=== PATIENT | male | born 1970 | race Caucasian/White ===

== ENCOUNTER 2023-02-15 08:32 | Inpatient (IN) | payer BC ==
[2023-02-15] MEDS ORDERED: Cefepime 2 GM VIAL ONE (09:34)
[2023-02-15] MEDS ORDERED: Vancomycin 1 GM VIAL ONE (09:34)
[2023-02-15 09:40] LABS: #Neutrophils 9.8 10x3/uL (1.5-8.4); %Basophils 0.2 % (0.0-2.0); %Eosinophils 0.3 % (0.0-6.0); %Lymphocytes 6.8 % (18.0-47.0); %Monocytes 8.2 % (0.0-10.0); %Neutrophils 84.2 % (40.0-75.0); Mean Corpuscular HGB CONC 34.1 g/dL (32.0-36.0); Mean Corpuscular Hemoglobin 30.7 pg (27.0-33.0); Mean Platelet Volume 10.4 fl (7.4-10.4); Platelet Count 183 10x3/uL (150-450); RBC Distribution Width 12.9 % (11.5-14.5); Red Blood Cell (RBC) Count 5.21 10x6/uL (4.32-5.72); White Blood Cell (WBC) Count 11.6 10x3/uL (3.5-10.5)
[2023-02-15 09:54] LABS: ALT (SGPT) 27 U/L (8-55); AST (SGOT) 25 U/L (5-34); Albumin 4.6 g/dL (3.5-5.0); Alkaline Phosphatase 53 U/L (40-110); Anion Gap 15 mmol/L (10-20); BUN (Urea Nitrogen) 18 mg/dL (8.4-25.7); Bilirubin, Total 0.8 mg/dL (0.2-1.2); CK (CPK) 248 U/L (30-200); Calc. Creatinine Clearance 0 mL/min (70-130); Calcium 9.3 mg/dL (7.8-10.44); Carbon Dioxide 21 mmol/L (22-29); Chloride 105 mmol/L (98-107); Estimated GFR 73; Globulin 2.5 g/dL (2.4-3.5); Glucose 111 mg/dL (70-105); Lipase 50 U/L (8-78); Potassium 4.5 mmol/L (3.5-5.1); Protein, Total 7.1 g/dL (6.0-8.3); Sodium 136 mmol/L (136-145)
[2023-02-15 10:21] LABS: Bilirubin Neg (Negative); Blood, Urine 25 (Negative); Clarity Clear (Clear); Glucose, Urine (Dipstick) Normal (Negative); Ketone, Urine Negative (Negative); Leukocyte Negative (Negative); Nitrite Negative (Negative); Protein, Urine (Dipstick) 15 mg/dl (Neg-Trace); Urobilinogen Normal mg/dL (Less than 2)
[2023-02-15 10:32] LABS: Bacteria/HPF None Seen HPF (None Seen); CAUTI Indications for Culture Immunosuppressed; RBC/HPF 0-3 HPF (0-3); Squamous Epithelial None Seen HPF (0-3); WBC/HPF None Seen HPF (0-3)
[2023-02-15 10:33] LABS: Urine Culture Reflex Yes Yes
[2023-02-15] MEDS ORDERED: Iopamidol 370 76% 100 ML VIAL ONE (10:58)
[2023-02-15] MEDS ORDERED: HYDROcodone/Acetaminophen 5/325 mg Tablet PO PRN (12:52)
[2023-02-15] MEDS ORDERED: Acetaminophen 325 MG TAB PO PRN (12:52)
[2023-02-15] MEDS ORDERED: Ondansetron ODT 4 MG TAB PO PRN (12:52)
[2023-02-15] MEDS ORDERED: CEFAZOLIN 1 GM VIAL ONE (13:34)
[2023-02-15 18:25] VITALS: BMI 35.0
[2023-02-15] MEDS: Sodium Chloride 0.9% 1,000 ML IV SCH (19:40)
[2023-02-15] MEDS ORDERED: Atorvastatin Calcium 10 MG TAB PO SCH (21:00)
[2023-02-15] MEDS: Pregabalin 50 MG CAP PO SCH (21:30)
[2023-02-15] MEDS: CEFAZOLIN 1 GM in Sodium Chloride 0.9% 100 ML IVPB SCH (21:31)
[2023-02-16 05:03] LABS: #Eosinphils 0.1 10x3/uL (0.0-0.5); #Monocytes 0.8 10x3/uL (0.0-1.1); #Neutrophils 5.2 10x3/uL (1.5-8.4); %Basophils 0.3 % (0.0-2.0); %Eosinophils 0.7 % (0.0-6.0); %Monocytes 11.3 % (0.0-10.0); %Neutrophils 75.4 % (40.0-75.0); Hemoglobin 14.7 g/dL (13.5-17.5); Mean Corpuscular HGB CONC 33.1 g/dL (32.0-36.0); Mean Corpuscular Hemoglobin 30.4 pg (27.0-33.0); Mean Corpuscular Volume 91.9 fl (81.2-95.1); Mean Platelet Volume 10.5 fl (7.4-10.4); Platelet Count 170 10x3/uL (150-450); RBC Distribution Width 13.2 % (11.5-14.5); Red Blood Cell (RBC) Count 4.83 10x6/uL (4.32-5.72); White Blood Cell (WBC) Count 6.8 10x3/uL (3.5-10.5)
[2023-02-16 05:19] LABS: Anion Gap 13 mmol/L (10-20); BUN (Urea Nitrogen) 13 mg/dL (8.4-25.7); Calc. Creatinine Clearance 128 mL/min (70-130); Calcium 8.6 mg/dL (7.8-10.44); Carbon Dioxide 24 mmol/L (22-29); Chloride 107 mmol/L (98-107); Estimated GFR 82; Glucose 98 mg/dL (70-105); Potassium 3.7 mmol/L (3.5-5.1); Sodium 140 mmol/L (136-145)
[2023-02-16] MEDS: CEFAZOLIN 1 GM in Sodium Chloride 0.9% 100 ML IVPB SCH ×2 (05:57→15:26)
[2023-02-16] MEDS: Sodium Chloride 0.9% 1,000 ML IV SCH ×2 (05:58→15:27)
[2023-02-16] MEDS: Pregabalin 50 MG CAP PO SCH ×2 (08:22→15:30)
[2023-02-16] MEDS ORDERED: CEFAZOLIN 1 GM VIAL ONE (15:22)
[2023-02-16 16:46] VITALS: BP 130/73; TEMP 98.3
== END 2023-02-16 19:06 | disposition home or self-care (01) | DRG 872 ==
LOC: CSHERS 08:32 → CSHTELE 10:37
PROVIDERS: ADMIT Family Medicine; ATTEND Family Medicine
DX: A41.9 Sepsis, unspecified organism (principal); L03.114 Cellulitis of left upper limb; G62.9 Polyneuropathy, unspecified; E78.5 Hyperlipidemia, unspecified; Z85.821 Personal history of Merkel cell carcinoma; Z92.3 Personal history of irradiation; Z92.21 Personal history of antineoplastic chemotherapy; Z79.899 Other long term (current) drug therapy
CPT/HCPCS: 36415; 71275; 80048; 80053; 81001; 82550; 83605; 83690; 83880; 84484; 85025; 87040; 87086; 93005; J0690; J0692; J1650; J3370; J3490; J7050; Q9967

== ENCOUNTER 2023-06-10 12:14 | Inpatient (IN) | payer BC ==
[2023-06-10 13:29] LABS: ALT (SGPT) 27 U/L (8-55); AST (SGOT) 22 U/L (5-34); Albumin 4.7 g/dL (3.5-5.0); Alkaline Phosphatase 54 U/L (40-110); Anion Gap 17 mmol/L (10-20); BUN (Urea Nitrogen) 20 mg/dL (8.4-25.7); Bilirubin, Total 0.6 mg/dL (0.2-1.2); Calc. Creatinine Clearance 0 mL/min (70-130); Calcium 9.5 mg/dL (7.8-10.44); Carbon Dioxide 24 mmol/L (22-29); Chloride 104 mmol/L (98-107); Estimated GFR 69; Globulin 2.5 g/dL (2.4-3.5); Glucose 104 mg/dL (70-105); Potassium 4.7 mmol/L (3.5-5.1); Protein, Total 7.2 g/dL (6.0-8.3); Sodium 140 mmol/L (136-145)
[2023-06-10 13:34] LABS: #Monocytes 0.6 10x3/uL (0.0-1.1); #Neutrophils 10.8 10x3/uL (1.5-8.4); %Basophils 0.2 % (0.0-2.0); %Eosinophils 0.2 % (0.0-6.0); %Monocytes 5.2 % (0.0-10.0); %Neutrophils 89.2 % (40.0-75.0); Hematocrit 46.8 % (38.8-50.0); Hemoglobin 15.8 g/dL (13.5-17.5); Mean Corpuscular HGB CONC 33.8 g/dL (32.0-36.0); Mean Corpuscular Hemoglobin 30.6 pg (27.0-33.0); Mean Corpuscular Volume 90.7 fl (81.2-95.1); Mean Platelet Volume 10.7 fl (7.4-10.4); Platelet Count 193 10x3/uL (150-450); RBC Distribution Width 13.1 % (11.5-14.5); Red Blood Cell (RBC) Count 5.16 10x6/uL (4.32-5.72); White Blood Cell (WBC) Count 12.1 10x3/uL (3.5-10.5)
[2023-06-10] MEDS ORDERED: Piperacillin/Tazobactam 4.5 GM VIAL ONE (13:39)
[2023-06-10] MEDS ORDERED: VANCOMYCIN 2 GRAM/400 ML BAG 2 GM in Premix 1 BAG IVPB SCH (13:45)
[2023-06-10] MEDS ORDERED: Communication Order-Pharmacy FS SCH (14:13)
[2023-06-10] MEDS ORDERED: Ondansetron ODT 4 MG TAB PO PRN (14:13)
[2023-06-10] MEDS ORDERED: Acetaminophen 500 MG TAB ONE (14:25)
[2023-06-10 15:53] LABS: Lactic Acid 1.9 mmol/L (0.5-2.2)
[2023-06-10 16:30] VITALS: BMI 34.9
[2023-06-10] MEDS: Sodium Chloride 0.9% 1,000 ML IV SCH ×2 (16:36→22:03)
[2023-06-10] MEDS: Piperacillin/Tazobactam 3.375 GM in Sodium Chloride 0.9% 100 ML IVPB SCH (17:34)
[2023-06-10] MEDS: Famotidine 20 MG TAB PO SCH (20:30)
[2023-06-10] MEDS: Acetaminophen 325 MG TAB PO PRN (20:30)
[2023-06-10] MEDS ORDERED: Vancomycin 2 GM in Sodium Chloride 0.9% 250 ML 300 ML IVPB SCH (21:00)
[2023-06-11] MEDS: Piperacillin/Tazobactam 3.375 GM in Sodium Chloride 0.9% 100 ML IVPB SCH ×3 (01:08→19:32)
[2023-06-11] MEDS: VANCOMYCIN 1.25 GM/250 ML BAG 1.25 GM in Premix 1 BAG IVPB SCH ×2 (02:25→16:32)
[2023-06-11 04:17] LABS: Anion Gap 12 mmol/L (10-20); BUN (Urea Nitrogen) 18 mg/dL (8.4-25.7); Calc. Creatinine Clearance 121 mL/min (70-130); Calcium 8.2 mg/dL (7.8-10.44); Carbon Dioxide 18 mmol/L (22-29); Chloride 112 mmol/L (98-107); Estimated GFR 78; Glucose 120 mg/dL (70-105); Potassium 4.2 mmol/L (3.5-5.1); Sodium 138 mmol/L (136-145)
[2023-06-11 04:18] LABS: #Monocytes 0.5 10x3/uL (0.0-1.1); #Neutrophils 8.1 10x3/uL (1.5-8.4); %Basophils 0.3 % (0.0-2.0); %Eosinophils 0.2 % (0.0-6.0); %Lymphocytes 4.2 % (18.0-47.0); %Neutrophils 88.9 % (40.0-75.0); Hematocrit 42.1 % (38.8-50.0); Hemoglobin 13.8 g/dL (13.5-17.5); Mean Corpuscular HGB CONC 32.8 g/dL (32.0-36.0); Mean Corpuscular Hemoglobin 30.8 pg (27.0-33.0); Mean Platelet Volume 10.9 fl (7.4-10.4); Platelet Count 152 10x3/uL (150-450); RBC Distribution Width 13.2 % (11.5-14.5); Red Blood Cell (RBC) Count 4.48 10x6/uL (4.32-5.72); White Blood Cell (WBC) Count 9.1 10x3/uL (3.5-10.5)
[2023-06-11] MEDS: Acetaminophen 325 MG TAB PO PRN (04:37)
[2023-06-11] MEDS: Sodium Chloride 0.9% 1,000 ML IV SCH ×2 (05:44→16:32)
[2023-06-11] MEDS: Famotidine 20 MG TAB PO SCH ×2 (09:35→21:38)
[2023-06-11] MEDS ORDERED: Atorvastatin Calcium 10 MG TAB PO SCH (22:15)
[2023-06-11] MEDS ORDERED: Pregabalin 50 MG CAP PO SCH (22:15)
[2023-06-12] MEDS: Sodium Chloride 0.9% 1,000 ML IV SCH ×4 (01:33→23:00)
[2023-06-12] MEDS: Piperacillin/Tazobactam 3.375 GM in Sodium Chloride 0.9% 100 ML IVPB SCH ×3 (01:34→20:10)
[2023-06-12] MEDS: VANCOMYCIN 1.25 GM/250 ML BAG 1.25 GM in Premix 1 BAG IVPB SCH ×2 (03:18→15:34)
[2023-06-12 03:42] LABS: #Eosinphils 0.1 10x3/uL (0.0-0.5); #Monocytes 0.7 10x3/uL (0.0-1.1); #Neutrophils 5.6 10x3/uL (1.5-8.4); %Basophils 0.3 % (0.0-2.0); %Eosinophils 1.1 % (0.0-6.0); %Lymphocytes 15.1 % (18.0-47.0); %Monocytes 9.7 % (0.0-10.0); %Neutrophils 73.4 % (40.0-75.0); Hemoglobin 12.5 g/dL (13.5-17.5); Mean Corpuscular HGB CONC 33.8 g/dL (32.0-36.0); Mean Corpuscular Hemoglobin 30.5 pg (27.0-33.0); Mean Corpuscular Volume 90.2 fl (81.2-95.1); Mean Platelet Volume 10.7 fl (7.4-10.4); Platelet Count 152 10x3/uL (150-450); RBC Distribution Width 13.2 % (11.5-14.5); Vancomycin, Trough 12.1 ug/mL; White Blood Cell (WBC) Count 7.6 10x3/uL (3.5-10.5)
[2023-06-12 03:44] LABS: Anion Gap 13 mmol/L (10-20); BUN (Urea Nitrogen) 14 mg/dL (8.4-25.7); Calc. Creatinine Clearance 121 mL/min (70-130); Calcium 8.2 mg/dL (7.8-10.44); Carbon Dioxide 19 mmol/L (22-29); Chloride 111 mmol/L (98-107); Estimated GFR 78; Glucose 95 mg/dL (70-105); Potassium 3.6 mmol/L (3.5-5.1); Sodium 139 mmol/L (136-145)
[2023-06-12] MEDS: Famotidine 20 MG TAB PO SCH ×2 (10:17→23:24)
[2023-06-12] MEDS: Pregabalin 50 MG CAP PO SCH ×2 (15:33→23:24)
[2023-06-12] MEDS: Atorvastatin Calcium 10 MG TAB PO SCH (23:24)
[2023-06-13] MEDS: Piperacillin/Tazobactam 3.375 GM in Sodium Chloride 0.9% 100 ML IVPB SCH ×3 (03:45→19:20)
[2023-06-13] MEDS: VANCOMYCIN 1.25 GM/250 ML BAG 1.25 GM in Premix 1 BAG IVPB SCH ×2 (03:45→16:32)
[2023-06-13 05:22] LABS: #Eosinphils 0.2 10x3/uL (0.0-0.5); #Monocytes 0.8 10x3/uL (0.0-1.1); #Neutrophils 3.3 10x3/uL (1.5-8.4); %Basophils 0.5 % (0.0-2.0); %Eosinophils 3.1 % (0.0-6.0); %Monocytes 14.3 % (0.0-10.0); %Neutrophils 60.7 % (40.0-75.0); Hemoglobin 12.4 g/dL (13.5-17.5); Mean Corpuscular HGB CONC 33.5 g/dL (32.0-36.0); Mean Corpuscular Hemoglobin 30.8 pg (27.0-33.0); Mean Corpuscular Volume 91.8 fl (81.2-95.1); Mean Platelet Volume 10.7 fl (7.4-10.4); Platelet Count 160 10x3/uL (150-450); Red Blood Cell (RBC) Count 4.03 10x6/uL (4.32-5.72); White Blood Cell (WBC) Count 5.5 10x3/uL (3.5-10.5)
[2023-06-13 05:27] LABS: Anion Gap 14 mmol/L (10-20); BUN (Urea Nitrogen) 16 mg/dL (8.4-25.7); Calc. Creatinine Clearance 132 mL/min (70-130); Calcium 8.5 mg/dL (7.8-10.44); Carbon Dioxide 19 mmol/L (22-29); Chloride 110 mmol/L (98-107); Estimated GFR 86; Glucose 90 mg/dL (70-105); Potassium 3.8 mmol/L (3.5-5.1); Sodium 139 mmol/L (136-145)
[2023-06-13] MEDS: Pregabalin 50 MG CAP PO SCH ×3 (08:28→21:16)
[2023-06-13] MEDS: Famotidine 20 MG TAB PO SCH ×2 (08:28→21:16)
[2023-06-13] MEDS: Sodium Chloride 0.9% 1,000 ML IV SCH ×3 (08:29→21:16)
[2023-06-13 14:33] LABS: Vancomycin, Trough 14.1 ug/mL
[2023-06-13] MEDS: Atorvastatin Calcium 10 MG TAB PO SCH (21:16)
[2023-06-14] MEDS: VANCOMYCIN 1.25 GM/250 ML BAG 1.25 GM in Premix 1 BAG IVPB SCH ×2 (01:25→16:13)
[2023-06-14] MEDS: Piperacillin/Tazobactam 3.375 GM in Sodium Chloride 0.9% 100 ML IVPB SCH ×3 (01:25→22:00)
[2023-06-14 04:36] LABS: #Eosinphils 0.2 10x3/uL (0.0-0.5); #Monocytes 0.7 10x3/uL (0.0-1.1); #Neutrophils 2.8 10x3/uL (1.5-8.4); %Basophils 0.8 % (0.0-2.0); %Eosinophils 4.8 % (0.0-6.0); %Lymphocytes 24.6 % (18.0-47.0); %Monocytes 13.3 % (0.0-10.0); %Neutrophils 55.7 % (40.0-75.0); Hematocrit 37.7 % (38.8-50.0); Hemoglobin 12.7 g/dL (13.5-17.5); Mean Corpuscular HGB CONC 33.7 g/dL (32.0-36.0); Mean Corpuscular Hemoglobin 31.1 pg (27.0-33.0); Mean Corpuscular Volume 92.2 fl (81.2-95.1); Mean Platelet Volume 10.6 fl (7.4-10.4); Platelet Count 184 10x3/uL (150-450); RBC Distribution Width 12.8 % (11.5-14.5); Red Blood Cell (RBC) Count 4.09 10x6/uL (4.32-5.72); White Blood Cell (WBC) Count 5.1 10x3/uL (3.5-10.5)
[2023-06-14 04:50] LABS: Anion Gap 14 mmol/L (10-20); BUN (Urea Nitrogen) 17 mg/dL (8.4-25.7); Calc. Creatinine Clearance 128 mL/min (70-130); Carbon Dioxide 20 mmol/L (22-29); Chloride 110 mmol/L (98-107); Estimated GFR 83; Potassium 4.2 mmol/L (3.5-5.1); Sodium 140 mmol/L (136-145)
[2023-06-14 04:51] LABS: Calcium 8.8 mg/dL (7.8-10.44); Glucose 99 mg/dL (70-105)
[2023-06-14] MEDS: Pregabalin 50 MG CAP PO SCH ×3 (08:22→22:02)
[2023-06-14] MEDS: Famotidine 20 MG TAB PO SCH ×2 (08:23→22:01)
[2023-06-14] MEDS: Acetaminophen 325 MG TAB PO PRN (08:23)
[2023-06-14] MEDS: Sodium Chloride 0.9% 1,000 ML IV SCH ×3 (16:13→22:07)
[2023-06-14] MEDS: Atorvastatin Calcium 10 MG TAB PO SCH (22:01)
[2023-06-15] MEDS: VANCOMYCIN 1.25 GM/250 ML BAG 1.25 GM in Premix 1 BAG IVPB SCH ×2 (03:05→15:42)
[2023-06-15 04:33] LABS: #Basophils 0.1 10x3/uL (0.0-0.2); #Eosinphils 0.3 10x3/uL (0.0-0.5); #Monocytes 0.5 10x3/uL (0.0-1.1); #Neutrophils 2.3 10x3/uL (1.5-8.4); %Eosinophils 5.2 % (0.0-6.0); %Lymphocytes 32.2 % (18.0-47.0); %Monocytes 11.1 % (0.0-10.0); %Neutrophils 48.8 % (40.0-75.0); Hematocrit 38.1 % (38.8-50.0); Mean Corpuscular HGB CONC 34.1 g/dL (32.0-36.0); Mean Corpuscular Hemoglobin 31.3 pg (27.0-33.0); Mean Corpuscular Volume 91.6 fl (81.2-95.1); Mean Platelet Volume 10.5 fl (7.4-10.4); Platelet Count 192 10x3/uL (150-450); RBC Distribution Width 12.8 % (11.5-14.5); Red Blood Cell (RBC) Count 4.16 10x6/uL (4.32-5.72); White Blood Cell (WBC) Count 4.8 10x3/uL (3.5-10.5)
[2023-06-15 04:41] LABS: Anion Gap 13 mmol/L (10-20); BUN (Urea Nitrogen) 18 mg/dL (8.4-25.7); Calc. Creatinine Clearance 118 mL/min (70-130); Calcium 8.5 mg/dL (7.8-10.44); Carbon Dioxide 21 mmol/L (22-29); Chloride 110 mmol/L (98-107); Estimated GFR 75; Glucose 99 mg/dL (70-105); Sodium 140 mmol/L (136-145)
[2023-06-15] MEDS: Piperacillin/Tazobactam 3.375 GM in Sodium Chloride 0.9% 100 ML IVPB SCH ×2 (05:54→13:42)
[2023-06-15] MEDS: Pregabalin 50 MG CAP PO SCH ×2 (08:22→15:41)
[2023-06-15] MEDS: Sodium Chloride 0.9% 1,000 ML IV SCH (08:23)
[2023-06-15] MEDS: Famotidine 20 MG TAB PO SCH (08:23)
[2023-06-15 16:43] VITALS: BP 127/80; TEMP 98
== END 2023-06-15 17:36 | disposition home or self-care (01) | DRG 872 ==
LOC: CSHERS 12:14 → CSHTELE 13:55
PROVIDERS: ADMIT Internal Medicine; ATTEND Family Medicine
DX: A41.9 Sepsis, unspecified organism (principal); L03.114 Cellulitis of left upper limb; E78.5 Hyperlipidemia, unspecified; G62.9 Polyneuropathy, unspecified; Z98.890 Other specified postprocedural states; Z79.899 Other long term (current) drug therapy; Z85.89 Personal history of malignant neoplasm of other organs and systems
CPT/HCPCS: 36415; 80048; 80053; 80202; 83605; 85025; 87040; 87077; 87149; 93005; 94760; 96374; 96375; J1650; J2543; J3370; J3490; J7050

== ENCOUNTER 2024-01-17 12:12 | Outpatient (CLI) | payer BC | END 2024-01-17 12:13 | disposition home or self-care (01) | LOC: CSHRAD 12:12 | PROVIDERS: ATTEND Physician Assistant | DX: M25.562 Pain in left knee (principal); M47.26 Other spondylosis with radiculopathy, lumbar region; M43.16 Spondylolisthesis, lumbar region | CPT/HCPCS: 72100 ==